=== PATIENT | female | born 1995 | race Caucasian/White ===

== ENCOUNTER 2019-09-13 00:43 | Inpatient (IN) | payer BC ==
[2019-09-13] MEDS ORDERED: Lactated Ringers 1000 ML Bag* 1,000 ML IV ONE (01:15)
[2019-09-13] MEDS ORDERED: Buffered Lidocaine 1% SYRIN* 1 ML/SYRINGE INTRADERM ONE (01:15)
--- NOTE | 2019-09-13 01:28 | HP ---
General Information - Reason for Visit Contractions getting stronger in past few hours, thinks water broke. - General Information Maternal Age: 24 Grav: 1 Para: 0 SAB: 0 IEA: 0 Estimated Due Date: 09/17/19 Determined By: LMP Maternal Blood Type and Rh: O Positive - Results this Serology/RPR Result: Non-Reactive Rubella Result: Immune HBsAg Result: Negative HIV Result: Negative GBS Culture Result: Positive Past Medical History Delivery History: See Records - No previous pregnancies Pertinent Past Medical History: Non-Contributory Pertinent Past Surgical History: None Pertinent Family History: Non-Contributory - Antepartal Records Antepartal Records: Reviewed, Complicated by: - Anemia; 37 week transfer of care; GBS+ Review of Systems Constitutional: Uncomfortable CV Complaint: No Respiratory: Shortness of Breath: No Gastrointestinal: Normal Bowel Movement, Nausea Genitourinary: Leaking Fluid, Spotting Neurological: No Headache, No Visual Changes Movement: Normal Exam Allergies/Adverse Reactions: Allergies No Known Allergies Allergy (Verified 09/13/19 01:00) BP 124/58 T 97.6 HR 53 O2 98 - Measurements Height: 5 ft Weight: 145 lb Weight in lbs: [id number] Body Mass Index (BMI): 28.3 Pre- Weight: 120 lb Weight Gained This : 25 lbs and 0 ozs - Exam Breast: Breast Exam Deferred Extremities: No Edema Heart: Normal Rhythm/Heart Sounds HEENT: No Significant Findings Lungs: Clear Bilaterally Rectal: Rectal Exam Deferred Reflexes: DTR 2+ Thyroid: - - WNL @ entry to care - Abdominal Exam Abdomen Exam: Non-Tender, Fundal Height Consistent with Dates - Ultrasound/Biophysical Profile Ultrasound Status: Not Done Targeted Exam Findings Estimated Weight: 7.5lb Cervical Exam: 3cm, 4cm Effacement: 90% Station: 0 Presenting Part: Vertex Membrane Status: Leaking Amniotic Fluid Evaluation: Gross Rupture Bleeding/Discharge: Bloody Show EFM Findings - External Monitor Findings Baseline Heart Rate: 120 External Monitor Findings: Accelerations Present, No Pattern of Variable or Late Decelerations, Variability Moderate Contractions: Irregular, Strong, 45-90 Seconds Contraction Frequency: q 2-3 min Assessment/Plan - Assessment IUP @ 39+3 weeks gestation in active labor. Membrane ruptured. No evidence acidemia - Obstetrical Risk Factors Obstetrical Risk Factors: GBS Positive - Plan Plan: Admit - Anticipate Vaginal Delivery Plan Comment: Admit to L&D, initiate GBS prophylaxis. Patient would like to get in tub, not planning epidural. Anticipate SVB. - Date/Time of Admission Date of Admission: 09/13/19 Time of Admission: 00:56
[2019-09-13] MEDS ORDERED: Penicillin G Potassium IV* 5,000,000 UNITS in NS 0.9% 100 ML* 100 ML IVPB ONE (01:30)
[2019-09-13 01:31] LABS: Urine Benzodiazepine Screen None Detected (None Detect); Urine Buprenorphine Screen None Detected (None Detect); Urine Hydrocodone Screen None Detected (None Detect); Urine Opiates Screen None Detected (None Detect)
[2019-09-13 01:48] LABS: Hematocrit 33 % (35-47); Hemoglobin 10.6 g/dL (12.0-16.0); Mean Corpuscular HGB Conc 32 g/dL (31-36); Mean Corpuscular Hemoglobin 20 pg (27-31); Mean Corpuscular Volume 63 fL (80-97); Mean Platelet Volume 9.6 fL (7.4-10.4); Platelet Count 286 10^3/uL (150-450); Red Blood Count 5.34 10^6 /uL (3.70-4.87); Red Cell Distribution Width 15 % (10-15); White Blood Count 15.3 10^3/uL (3.5-10.8)
[2019-09-13] MEDS ORDERED: OBEPIDURAL* 250 ML EPIDURAL ONE (02:21)
--- NOTE | 2019-09-13 02:23 | PN ---
Progress Note - Progress Note Date of Service: 09/13/19 Note: S: Got some relief in tub, considering epidural but would like to be checked first O: VE 5-6cm/100/vtx 0 FHT 120 via doppler UCs q 2-3min A: IUP in active labor Ruptured P: Desires epidural, anesthesia paged.
[2019-09-13 02:25] LABS: Polychromasia 1+
[2019-09-13 02:26] LABS: Microcytosis 2+
[2019-09-13 02:28] LABS: ABS Basophils 0.1 10^3/ul (0-0.2); ABS Lymphocytes 1.7 10^3/ul (1.0-4.8); ABS Monocytes 0.8 10^3/ul (0-0.8); ABS Neutrophils 12.7 10^3/ul (1.5-7.7); Eosinophil % 0.2 %; Lymphocyte % 11.3 %
[2019-09-13] MEDS ORDERED: EPHEDrine (Pressors)* 50 MG/ML VIAL IV PUSH PRN ×2 (03:18)
[2019-09-13] MEDS ORDERED: Sodium Citrate/Citric Acid* 15 ML UDC PO PRN (03:18)
[2019-09-13] MEDS ORDERED: Famotidine TAB* 20 MG PO PRN (03:18)
[2019-09-13] MEDS ORDERED: Phenylephrine 40 MCG/ML SYRINGE IV PUSH PRN ×2 (03:18)
--- NOTE | 2019-09-13 03:31 | PN ---
Progress Note - Progress Note Date of Service: 09/13/19 Note: Comfortable with epidural. Baby with 6-7 minute deceleration to 90s/100s with return to baseline after position changes, O2. RN exam approx 7-8cm, scalp stimulation. Phenylephrine given.
[2019-09-13] MEDS ORDERED: Lactated Ringers 1000 ML Bag* 1,000 ML IV SCH ×2 (04:00→14:00)
[2019-09-13] MEDS ORDERED: OBEPIDURAL* 250 ML EPIDURAL SCH (04:00)
[2019-09-13] MEDS: Penicillin G Potassium IV* 3,000,000 UNITS in NS 0.9% 100 ML* 100 ML IVPB SCH ×2 (05:31→09:29)
[2019-09-13] MEDS: Lactated Ringers 1000 ML Bag* 1,000 ML IV SCH ×3 (05:32→11:31)
--- NOTE | 2019-09-13 06:23 | PN ---
Progress Note - Progress Note Date of Service: 09/13/19 Note: S: Comfortable with epidural. O: VE 9.5/100/+1 FHT 150 +accels, no decels, variable decels; resolved with position shifts UCs q 2-3 VSS A: IUP in active labor ROM P:Labor down, anticipate trial of pushing soon.
--- NOTE | 2019-09-13 08:53 | PN ---
Progress Note - Progress Note Date of Service: 09/13/19 Note: S: Pt now comfortable with epidural, following bolus by MD Cristi. O: VE 9.5/100/+1 FHT 150 +accels, no decels, variable decels; resolved with position shifts UCs q 2-3 VSS A: IUP in active labor ROM P: Labor down, anticipate trial of pushing soon.
[2019-09-13] MEDS ORDERED: Oxytocin in LR* 20 UNITS/1,000 ML BAG IVPB ONE (09:09)
--- NOTE | 2019-09-13 09:13 | PN ---
Progress Note - Progress Note Date of Service: 09/13/19 Note: S: Pt now comfortable with epidural, following bolus by MD Cristi. O: VE 9.5/100/+1 FHT 150 +accels, no decels, late decels; resolved with position shifts, O2, IV fluids UCs q 2-3 Temp 98.3 A: IUP in active labor Cervix unchanged VSS ROM P: Start low dose pitocin Anticipate trial of pushing soon
[2019-09-13] MEDS ORDERED: Witch Hazel PAD* JAR TOPICAL PRN (13:21)
[2019-09-13] MEDS ORDERED: Acetaminophen TAB* 325 MG PO PRN (13:21)
[2019-09-13] MEDS ORDERED: Dibucaine 1% 28.35 GM TUBE PR PRN (13:21)
[2019-09-13] MEDS ORDERED: Dibucaine 1% 28.35 GM TUBE ONE (13:23)
[2019-09-13] MEDS ORDERED: Witch Hazel PAD* JAR ONE (13:23)
[2019-09-13] MEDS: Ibuprofen TAB* 600 MG PO PRN ×2 (13:36→22:04)
[2019-09-13] MEDS: Docusate CAP* 100 MG PO SCH ×2 (15:29→21:40)
--- NOTE | 2019-09-13 16:34 | PROCNOTE ---
[facility] OB: Delivery Note - Delivery A Date of : 09/13/19 Time of : 13:01 [facility] Weight at : 6 lb 11 oz Score 1 Minute: 2 Score 5 Minutes: 3 - 3(10) 9(15) Gestational Age in Weeks and Days at Delivery: 39 Weeks and 3 Days Delivery Method: Low Vacuum Extraction, Vaginal Labor: Spontaneous Did Patient attempt ?: N/A, No Previous Amniotic Fluid: Meconium Estimated Blood Loss: 200 Anesthesia/Analgesia: CEI for Labor Delivered By: Marezna Bell - Nursery Level of Nursery: NICU - Perineum Perineal Injury: 1st Degree - Events Delivery Events of Note: Pitocin During Labor, Difficult Delivery, Supplemental O2 to Mother, Full Course of Antibiotics, Internal Scalp EKG, IUPC Use - Additional Delivery Notes Additional Delivery Notes: Pt was managed through labor with CNM. During labor the heart tracing was Cat 2 with some recurrent deep variables during contractions and intermittent late decels but had moderate variablity with accelerations through most of the labor process. After pushing for about 1hr 45min I was asked to consult on vacuum delivery due to pt exhaustion and decreasing variability of the baseline. A discussion was had with the patient about the risks and benefits of vacuum delivery and indications. Being that the heart tracing had only recently developed minimal variability she was encouraged to try pushing for 10 more minutes since she was still giving very good effort. Over this time she made progress but was still not . At this time she had been pushing for more than 2 hours and requested vacuum assistance for delivery. The first vacuum applied had no suction. The second vacuum was applied to 500-600mmHg during 2 contractions where it popped off during the first push. Then during a final contraction it was applied through several pushes and brought the head to . With maternal effort the head then delivered in direct OA position followed quickly by the shoulders and the rest of the body. A fair amount of meconium stained fluid delivered after the baby. The baby was placed on mom's abdomen. The cord was coiled tightly around the baby's ankle x2. This was removed and the cord was milked towards the baby, then clamped x2 and cut. A segment of cord was clamped for cord gasses. Cord blood was then collected. A small first degree laceration was repaired with a figure of eight suture of 3-0 vicryl rapide. The placenta delivered with gentle cord traction and fundal massage. The membranes were meconium stained. The fundus was firm and there was good hemostasis.
[2019-09-13] MEDS ORDERED: Simethicone TAB* 80 MG TAB.CHEW PO SCH (17:30)
[2019-09-13 22:17] VITALS: BP 104/48
[2019-09-14] MEDS ORDERED: Ferrous Gluconate TAB* 324 MG TAB PO SCH (09:00)
--- NOTE | 2019-09-14 21:11 | PN ---
Progress Note - Progress Note Date of Service: 09/13/19 Note: IUPC and FSE placed without complication. Pt tolerated well. Consult with Genesis Bell MD. MD is in-house and following tracing. MD assessed pt. Change in station noted and pt visibly uncomfortable FHR with moderate variability. Per MD, plan to continue laboring. MD to remain in-house with close monitoring of pt status.
--- NOTE | 2019-09-14 21:38 | PN ---
Progress Note - Progress Note Date of Service: 09/13/19 Note: Continued deep variables with pushing. FHR recovers between contractions, moderate variability. Strong maternal pushing efforts and good descent with pushing. MD consulted. in-house and monitoring strip. Per MD, plan to continue laboring.
--- NOTE | 2019-09-14 21:46 | PN ---
Progress Note - Progress Note Date of Service: 09/13/19 Note: Pt pushing effectively, +2 station Ongoing deep variables, FHR now with minimal variability. MD in-house, monitoring tracing. MD to bedside to assess pt.
== END 2019-09-14 00:30 | disposition home or self-care (01) | DRG 560 ==
LOC: MCHOBOUT 00:43 → MCHOB 00:56
PROVIDERS: ADMIT Midwife; ATTEND Obstetrics & Gynecology
PROC: 10D07Z6 Extraction of Products of Conception, Vacuum, Via Natural or Artificial Opening (ICD-10-PCS; principal; 2019-09-13)
PROC: 0HQ9XZZ Repair Perineum Skin, External Approach (ICD-10-PCS; 2019-09-13)
DX: O99.824 Streptococcus B carrier state complicating childbirth (principal); Z37.0 Single live birth; O70.0 First degree perineal laceration during delivery; O77.0 Labor and delivery complicated by meconium in amniotic fluid; O76 Abnormality in fetal heart rate and rhythm complicating labor and delivery; O69.2XX0 Labor and delivery complicated by other cord entanglement, with compression, not applicable or unspecified; Z3A.39 39 weeks gestation of pregnancy
CPT/HCPCS: 36415; 80307; 85025; 85060; 86850; 86900; 86901; A9270-GY; G0480; J2540